=== PATIENT | female | born 1990 | race Caucasian/White ===

== ENCOUNTER → 2017-10-05 | Emergency (ER) | payer OTHER ==
[~2017-10-05] VITALS: Ht 180.3 cm; Wt 72.6 kg
[~2017-10-05] MED LIST: ALBUTEROL2.5 MG/3 M IH; ZITHROMAX500 MG PO; ZYNCOF 20-400120 ML PO
== END | disposition home or self-care (01) ==
LOC: ER 23:22
DX: J40 Bronchitis, not specified as acute or chronic (principal); R04.2 Hemoptysis